=== PATIENT | female | born 1985 | race Caucasian/White ===

== ENCOUNTER 2017-01-22 02:08 | Inpatient (IN) | payer MEDICAID ==
[~2017-01-22] VITALS: Ht 165.1 cm; Wt 79.8 kg
[2017-01-22 03:35] LABS: BASOPHIL % 0 % (0-2); PLATELET COUNT 68 x10^3mcL (130-400)
[2017-01-22 03:40] LABS: CARBON DIOXIDE 19.7 mmol/L (21-32); CHLORIDE SERUM 106 mmol/L (98-107); CREATININE SERUM 0.9 mg/dL (0.6-1.0); GFR1 > 60 mL/min; GLUCOSE SERUM 166 mg/dL (74-106); POTASSIUM SERUM 4.1 mmol/L (3.5-5.1); SODIUM SERUM 137 mmol/L (136-145)
[2017-01-22 03:50] LABS: ALKALINE PHOSPHATASE 34 U/L (46-116); ALT/SGPT 26 U/L (14-59); AST/SGOT 18 U/L (15-37); BILIRUBIN TOTAL 0.17 mg/dL (0.20-1.00); TOTAL PROTEIN, SERUM 6.6 g/dL (6.4-8.2)
[2017-01-22 03:54] LABS: ALBUMIN 3.1 g/dL (3.4-5.0)
[2017-01-22 05:20] LABS: microscopic required? NO
[2017-01-22 05:39] LABS: UA SPECIFIC GRAVITY <=1.005 (1.005-1.035); urine erythrocyte NEGATIVE (NEGATIVE)
[2017-01-22 06:05] LABS: AMPHETAMINE QUAL UR NONE DETECTED (NEG <=1000)
[2017-01-22 06:12] LABS: PHOSPHOROUS 3.9 mg/dL (2.5-4.9)
[2017-01-22 06:17] LABS: CHOLESTEROL/HDL RATIO 3.2
[2017-01-22 06:34] LABS: T3 TOTAL 1.23 ng/mL
[2017-01-22 06:36] VITALS: BP 107/50
[2017-01-22 06:41] VITALS: BP 107/50
[2017-01-22 06:55] LABS: FREE THYROXINE INDEX 2.6 ug/dL (1.4-4.5); T4(THYROXINE) 7.7 ug/dL (4.7-13.3)
[2017-01-22 09:59] VITALS: BP 96/49
[2017-01-22 14:00] VITALS: BP 109/54
[2017-01-22 16:01] LABS: BASOPHIL % 0.2 % (0-2); PLATELET COUNT 174 x10^3mcL (130-400); RED CELL DISTRIBUTION WIDTH 13.2 % (11.5-14.5)
[2017-01-22 17:26] VITALS: BP 109/56
[2017-01-22 22:03] VITALS: BP 107/56
[2017-01-23 05:22] VITALS: BP 102/56
[2017-01-23 07:13] LABS: CALCIUM 7.7 mg/dL (8.5-10.1); CARBON DIOXIDE 23.9 mmol/L (21-32); CHLORIDE SERUM 109 mmol/L (98-107); CREATININE SERUM 0.4 mg/dL (0.6-1.0); GFR1 > 60 mL/min; GLUCOSE SERUM 88 mg/dL (74-106); MAGNESIUM 1.9 mg/dL (1.8-2.4); PHOSPHOROUS 3.2 mg/dL (2.5-4.9); POTASSIUM SERUM 3.7 mmol/L (3.5-5.1); SODIUM SERUM 140 mmol/L (136-145)
[2017-01-23 07:25] LABS: RED CELL DISTRIBUTION WIDTH 13.4 % (11.5-14.5)
[2017-01-23 07:42] LABS: BASOPHIL % 0.5 % (0-2); PLATELET COUNT 151 x10^3mcL (130-400)
[2017-01-23 08:55] VITALS: BP 102/56
[2017-01-23 09:44] VITALS: BP 108/52
[2017-01-23] MEDS ORDERED: TYL325 PO (13:48)
[2017-01-23] MEDS ORDERED: NATURAL IRON65 MG PO (13:49)
[2017-01-23] MEDS ORDERED: VITC100 PO (13:50)
== END 2017-01-23 15:28 | disposition home or self-care (01) | DRG 544 ==
LOC: ED 02:08 → DU 04:47 → MU 09:07 → DU 09:12 → MU 01-23 07:56
PROVIDERS: Emergency Medicine; ADMIT Family Medicine
PROC: 10D17ZZ Extraction of Products of Conception, Retained, Via Natural or Artificial Opening (ICD-10-PCS; principal; 2017-01-23)
DX: O03.4 Incomplete spontaneous abortion without complication (principal); E44.0 Moderate protein-calorie malnutrition; D64.9 Anemia, unspecified
CPT/HCPCS: 83880; 84439; J2250; J2270; J2405; J2704; J3010; J7030; J7120; Q0092